=== PATIENT | female | born 1985 | race Caucasian/White ===

== ENCOUNTER → 2021-02-07 | Outpatient (CLI) | payer OTHER, SELFPAY | END | disposition home or self-care (01) | LOC: LABSPEC 10:37 | PROVIDERS: PCP Nurse Practitioner; Referring Provider Dermatology; Visit Provider Dermatology | DX: L02.01 Cutaneous abscess of face (principal) | CPT/HCPCS: 87070; 87075; 87077; 87186; 87205 ==